=== PATIENT | male | born 1985 | race Hispanic/Latino ===

== ENCOUNTER 2022-01-24 20:00 | Emergency (ER) | payer SELFPAY ==
[2022-01-24 20:03] VITALS: BP 151/94; PULSE 84; RESP 18; TEMP 36.6; O2SAT 100
[2022-01-24] MEDS: TETANUS,DIPHTHERIA,AC PERTUSSIS ADULT (0.5 ML) BOOSTRIX IM (20:33)
--- NOTE | 2022-01-25 12:23 | ED.WOUNDLAC ---
HPI - Wound/Laceration General Chief Complaint: Wound/Laceration Stated Complaint: laceration Time Seen by Provider: 01/24/22 20:10 History of Present Illness HPI narrative: Patient is a 36 year old male here for evaluation of a laceration sustained to his left hand about 6 hours [employer]. 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 He washed the area out with soap and water and covered it. He was told to come to the ED by his . Last tetanus unknown. The metal he sliced his hand on is intact. Denies numbness, tingling in his hand, denies difficulty moving his fingers. He is right-handed. Related Data Allergies Allergy/AdvReac Type Severity Reaction Status Date / Time No Known Allergies Allergy Verified 01/24/22 20:05 Review of Systems Review of Systems: CONSTITUTIONAL: Denies fever, chills, or sweats. EYES: Denies visual changes, redness, or discharge. ENT: Denies rhinorrhea, congestion, sore throat, or otalgia. CARDIOVASCULAR: Denies chest pain, palpitations, or edema. RESPIRATORY: Denies cough or dyspnea. GASTROINTESTINAL: Denies abdominal pain, nausea, vomiting, or diarrhea. GENITOURINARY: Denies dysuria or hematuria. SKIN: Reports laceration. Denies rash or itching. MUSCULOSKELETAL: Denies back pain, joint pain, or myalgia. NEUROLOGIC: Denies headache, numbness, or weakness. PSYCHIATRIC: Denies anxiety or depression. Exam Narrative: Gen: Pleasant, alert, oriented Eyes: EOMI, no icterus Pulm: Respirations even and unlabored, symmetric thorax expansion, no audible stridor or visible cyanosis GI: No distension, no voluntary/involuntary guarding CV: 2+ radial pulses bilaterally. Brisk capillary refill. Neuro: AOx4, moves all extremities without apparent difficulty or weakness, follows commands MSK: Equal strength in fingers. Full range of motion of hand and fingers. No numbness throughout hand. Skin: 3 cm linear laceration present to the palmar aspect of left hand extending from mid palm to ulnar side of hand. Subcutaneous tissue is visible. No evidence of tendon involvement. No jaundice, no visible bruising, rashes, lesions or wounds on exposed skin Psych: Normal mood/affect, insight/judgement good, adequate fund of knowledge, recent/remote memory intact Course Vital Signs Vital signs: Vital Signs Temperature 97.8 F 01/24/22 20:03 Pulse Rate 84 01/24/22 20:03 Respiratory Rate 18 01/24/22 20:03 Blood Pressure 151/94 H 01/24/22 20:03 Pulse Oximetry 100 01/24/22 20:03 Oxygen Delivery Room Air 01/24/22 20:03 Temperature 97.8 F 01/24/22 20:03 Pulse Rate 84 01/24/22 20:03 Respiratory Rate 18 01/24/22 20:03 Blood Pressure 151/94 H 01/24/22 20:03 Pulse Oximetry 100 01/24/22 20:03 Oxygen Delivery Room Air 01/24/22 20:03 Procedures Laceration Laceration 1: Date: 01/24/22 Time: 20:30 Site: other (L palm) Size (cm): 3 Description: linear Depth: simple, single layer Local Anesthetic: lidocaine 1% Amount of anesthesia used (mL): 4 Pre-repair: wound explored, irrigated and irrigated extensively ====== Skin Level ====== Skin layer closed with: other (ethilon) Size (cm): 4-0 Number of sutures: 5 Technique: simple, interrupted ====== Subcutaneous Layer ====== ====== Muscle Layer ====== ====== Tendon Layer ====== MDM - Wound/Laceration MDM Narrative Medical decision making narrative: 36 year old male here for a 3 cm laceration to L palm. Patient hypertensive; likely due to anxiety/pain. Vitals otherwise normal. Neurovascularly intact distally. Tetanus updated, closure obtained with simple interrupted sutures. Advised wound care and discussed return precautions with patient. He will monitor wound for signs of infection and have sutures removed in about 10 days. Discharge Plan Discharge Clinical Impres
== END 2022-01-24 21:25 | disposition home or self-care (01) ==
PROVIDERS: Emergency Provider Emergency Medicine
DX: S61.412A Laceration without foreign body of left hand, initial encounter (principal); Z23 Encounter for immunization; W26.8XXA Contact with other sharp object(s), not elsewhere classified, initial encounter
CPT/HCPCS: 12002; 90471; 90715; 99282